=== PATIENT | male | born 1945 | race Caucasian/White ===

== ENCOUNTER 2020-06-06 21:57 | Emergency (ER) | payer MEDICARE, OTHER ==
[2020-06-06 22:05] VITALS: PULSE 105
--- NOTE | 2020-06-06 22:26 | EDM.PDOC ---
ED HPI GENERAL MEDICAL PROBLEM - General Chief Complaint: Abdominal Pain Stated Complaint: low abdominal pain Time Seen by Provider: 06/06/20 22:10 Source of Information: Reports: Patient History Limitations: Reports: No Limitations - History of Present Illness INITIAL COMMENTS - FREE TEXT/NARRATIVE: Dontrell is a 75 yo male who presents to the ED with c/o abdominal cramping earlier today. He reports his last BM was yesterday. Was soft BM. Reports that throughout the day today he has felt the urge to defecate, but has not been able to. Reports he called his PCP, Dr. Ramírez's office, and they recommended he try Miralax. He reports he took that today around 4 pm. Has had worse abdominal cramping since then. He reports he is concerned as he has peritoneal dialysis catheter and wants to be sure it isn't that issue. He reports at present, upon presentation to ED, he does not have any pain. He just "wants to be sure he isnt constipated." Denies any pain with tenderness to abdomen. He reports he has been eating and drinking without difficulty today. No nausea, vomiting, fever, chills, chest pain, or shortness of breath. Onset: Today Location: Reports: Abdomen Quality: Reports: Other (cramping) Treatments CRITICAL CARE NURSE: Reports: Other (see below) Other Treatments CRITICAL CARE NURSE: colace and miralax - Related Data Allergies Allergy/AdvReac Type Severity Reaction Status Date / Time metoclopramide HCl Allergy Anxiety Verified 06/06/20 22:06 [From Reglan] Home Meds: Home Meds Cholecalciferol (Vitamin D3) [Vitamin D] 2,000 unit PO DAILY 01/04/14 [History] Magnesium Amino Acid Chelate [Magnesium] 500 mg PO DAILY 08/23/15 [History] Clopidogrel [Plavix] 75 mg PO DAILY 06/06/20 [History] Folic Acid/Vitamin B Comp W-C [Renal Caps Softgel] 1 mg PO DAILY 06/06/20 [History] Levothyroxine Sodium [Levothyroxine] 125 mcg PO DAILY 06/06/20 [History] Metoprolol Succinate [Toprol XL] 25 mg PO DAILY 06/06/20 [History] Rosuvastatin Calcium 20 mg PO DAILY 06/06/20 [History] Past Medical History Cardiovascular History: Reports: CAD, High Cholesterol, Hypertension Genitourinary History: Reports: Chronic Renal Insuffiency, Dialysis Social & Family History - Family History Family Medical History: No Pertinent Family History - Living Situation & Occupation Living situation: Reports: Occupation: Employed ED ROS GENERAL - Review of Systems Review Of Systems: Comprehensive ROS is negative, except as noted in HPI. ED EXAM, GI/ABD - Physical Exam Exam: See Below Exam Limited By: No Limitations General Appearance: Alert, WD/WN, No Apparent Distress Neck: Normal Inspection, Supple, Non-Tender, Full Range of Motion Respiratory/Chest: No Respiratory Distress, Lungs Clear, Normal Breath Sounds, No Accessory Muscle Use, Chest Non-Tender Cardiovascular: Normal Peripheral Pulses, Regular Rate, Rhythm, No Edema, No Gallop, No JVD, No Murmur, No Rub GI/Abdominal Exam: Normal Bowel Sounds, Soft, Non-Tender, No Distention, Other (PD cath to LUQ, site nontender, no erythema, discharge or swelling). No: Guarding, Rigid, Rebound Back Exam: Normal Inspection, Full Range of Motion, NT Extremities: Normal Inspection, Normal Range of Motion, Non-Tender, Normal Capillary Refill, No Pedal Edema Neurological: Alert, Oriented, CN II-XII Intact, Normal Cognition, Normal Gait, Normal Reflexes, No Motor/Sensory Deficits Psychiatric: Anxious Course - Vital Signs Last Recorded V/S: Last Vital Signs Temp 98.0 F 06/06/20 22:00 Pulse 105 H 06/06/20 22:00 Resp 15 06/06/20 22:00 BP 146/99 H 06/06/20 22:25 Pulse Ox 98 06/06/20 22:00 Departure - Departure Time of Disposition: 22:22 Disposition: Home, Self-Care 01 Condition: Good Clinical Impression: Abdominal cramping - Discharge Information *PRESCRIPTION DRUG MONITORING PROGRAM REVIEWED*: Not Applicable *COPY OF PRESCRIPTION DRUG MONITORING REPORT IN PATIENT MAK: Not Applicable Instructions: Constipation, Adult, [id number] Referrals: PCP,Unknown [Ordering Only Provider] - Forms: ED Department Discharge Additional Instructions: - Suspect stool softeners/laxatives are causing cramping - Recommend heat to affected area as needed for comfort - Tylenol as needed for pain - Do recommend continuing peritoneal dialysis this evening as scheduled - Follow up with PCP for recheck Saturday as scheduled - Return to ED for emergent needs Sepsis Event Note (ED) - Evaluation Sepsis Screening Result: No Definite Risk - Problem List & Annotations (1) Abdominal cramping SNOMED Code(s): 806741066, 432583321 Code(s): R10.9 - UNSPECIFIED ABDOMINAL PAIN Status: Acute - Assessment/Plan Assessment:: Abdominal Cramping Plan: 75 yo male presents with c/o abdominal cramping. Reports he has felt urge to defecate all day without success. Did have BM yesterday without difficulty. Took a couple stool softeners without success. Called Dr. Ramírez's office today and they recommended Miralax. Has been having worsening cramping since then. No cramping or abdominal pain currently. Abdomen is soft and nontender. No emergent concerns given exam findings. Recommend he rest. May continue Miralax daily until having soft stools. Recommend he continue his peritoneal dialysis as previously ordered. Follow up with PCP as scheduled. Follow up sooner if symptoms persist or worsen. Patient verbalized understanding and was agreeable with plan. Discharged home in satisfactory condition.
[2020-06-06 22:30] VITALS: BP 146/99
== END 2020-06-06 22:35 | disposition home or self-care (01) ==
LOC: CC.ED 21:57
DX: R10.30 Lower abdominal pain, unspecified (principal); I12.0 Hypertensive chronic kidney disease with stage 5 chronic kidney disease or end stage renal disease; N18.6 End stage renal disease; I25.10 Atherosclerotic heart disease of native coronary artery without angina pectoris; E78.00 Pure hypercholesterolemia, unspecified; Z99.2 Dependence on renal dialysis; Z88.8 Allergy status to other drugs, medicaments and biological substances; Z79.02 Long term (current) use of antithrombotics/antiplatelets; Z79.899 Other long term (current) drug therapy
CPT/HCPCS: 99283